=== PATIENT | male | born 1985 | race Caucasian/White ===

== ENCOUNTER 2016-06-27 14:31 | Emergency (ER) | payer SELFPAY ==
[~2016-06-27] VITALS: Ht 180.3 cm; Wt 97.5 kg
[~2016-06-27 14:31] MED LIST: PROVENTIL HFA M18 GM INH; VENTOLIN H0.09 MG/Ac IH
[2016-06-27 14:55] VITALS: BP 119/75
--- NOTE | 2016-06-27 15:50 | NUR ---
PT TO BED 8 AT THIS TIME.
--- NOTE | 2016-06-27 15:51 | NUR ---
PT PRESENTS TO ER FOR EVALUATION OF EXPOSURE TO STD. PT STATES HE HAS BLISTERS TO HEAD OF PENIS X1 WEEK; DENIES N/V/D; SKIN IS PINK/WARM/DRY; AAOX4 WITH EVEN AND STEADY GAIT; LUNGS CLEAR BL; HR EVEN AND REGULAR; PT DENIES ANY FEVER, CP, SOB, OR COUGH AT THIS TIME; PATIENT STATES PAIN OF 10/10 AT THIS TIME; VSS; PATIENT POSITIONED FOR COMFORT; HOB ELEVATED; BEDRAILS UP X2; BED DOWN. ER MD MADE AWARE OF PT STATUS.
[2016-06-27] MEDS ORDERED: AZITHROMYCIN 250 MG TAB PO ONE (16:20)
[2016-06-27] MEDS ORDERED: IBUPROFEN 600 MG TAB PO ONE (16:20)
[2016-06-27] MEDS ORDERED: cefTRIAXone 500 MG in LIDOCAINE 1% ED 1 ML IM ONE (16:20)
[2016-06-27 17:20] VITALS: BP 124/66
--- NOTE | 2016-06-27 17:20 | NUR ---
Patient discharged with v/s stable. Written and verbal after care instructions given and explained. Patient alert, oriented and verbalized understanding of instructions. Ambulatory with steady gait. All questions addressed prior to discharge. ID band removed. Patient advised to follow up with PMD. Rx of ACYCLOVIR, DOXYCYCLINE, NORCO given. Patient educated on indication of medication including possible reaction and side effects. Opportunity to ask questions provided and answered.
== END 2016-06-27 17:20 | disposition home or self-care (01) ==
LOC: MED 14:31
DX: S30.822A Blister (nonthermal) of penis, initial encounter (principal); X58.XXXA Exposure to other specified factors, initial encounter; Y93.89 Activity, other specified; Y92.89 Other specified places as the place of occurrence of the external cause; Y99.8 Other external cause status
CPT/HCPCS: 36415; 81002; 82948; 86702; 96372; 99283; J0696; J2001

== ENCOUNTER 2016-08-10 18:13 | Emergency (ER) | payer SELFPAY ==
[~2016-08-10] VITALS: Ht 180.3 cm; Wt 93.0 kg
[~2016-08-10 18:13] MED LIST changes: +ALBU0.0912 INH; -PROVENTIL HFA M18 GM INH; -VENTOLIN H0.09 MG/Ac IH
[2016-08-10 18:29] VITALS: BP 131/63
--- NOTE | 2016-08-10 20:07 | NUR ---
AMBULATED TO ER OF2
--- NOTE | 2016-08-10 20:12 | NUR ---
31 Y/ M PRESENTS TO ER W/C/O COUGH X10 DAYS. PT DENIES ANY OTHER MEDICAL HX. A LITTLE BIT OF WHEZEES AND COARSE SOUNDS NOTED ON BILATERAL LOBES. NO NASAL FLARING, PT PINK. ER MD NOTIFIED.
--- NOTE | 2016-08-10 20:17 | NUR ---
Patient being evaluated by physician.
[2016-08-10 20:32] VITALS: BP 123/74
--- NOTE | 2016-08-10 20:32 | NUR ---
Patient discharged with v/s stable. Written and verbal after care instructions given and explained. Patient alert, oriented and verbalized understanding of instructions. Ambulatory with steady gait. All questions addressed prior to discharge. ID band removed. Patient advised to follow up with PMD BY TOMORROW OR RETURN TO ER IF CONDITION WORSENS. Rx of AZITHROMYCIN, PREDNISONE,AND ALBUTEROL given. Patient educated on indication of medication including possible reaction and side effects. Opportunity to ask questions provided and answered.
== END 2016-08-10 20:32 | disposition home or self-care (01) ==
LOC: MED 18:13
DX: J45.901 Unspecified asthma with (acute) exacerbation (principal); F17.210 Nicotine dependence, cigarettes, uncomplicated; R03.0 Elevated blood-pressure reading, without diagnosis of hypertension
CPT/HCPCS: 71010; 99283